=== PATIENT | female | born 1970 | race Hispanic/Latino ===

== ENCOUNTER 2018-09-07 08:13 | Outpatient (CLI) | payer OTHER ==
--- NOTE | 2018-09-07 10:10 | MRI ---
RIGHT KNEE MRI WITHOUT IV CONTRAST: Date: 09/07/18 HISTORY: 48-year-old female with history of strained right knee, right knee pain for several months. TECHNIQUE: Multiplanar, multisequence MRI examination of the knee is performed. FINDINGS: There is some fairly severe generalized tricompartment cartilage loss with some irregular full thickn ess components of both the medial and lateral compartments. There is an oblique full thickness fissur e with minimal delamination involving the central patellar facet, as well as irregular trochlear groo ve cartilage loss. Extensive complex tear of the lateral meniscus, including flap component, with ishaan e maceration. Very extensive complex macerated tear of the medial meniscus, including a flap component. Small amoun t of fluid in the suprapatellar recess. The cruciate ligaments and collateral ligament complexes and quadriceps and patellar tendons appear intact. 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 Very extensive complex flap tears with considerable maceration involving both the medial and lateral menisci. Some j oint fluid in the suprapatellar recess. POS: [facility]
== END 2018-09-07 08:14 | disposition home or self-care (01) ==
LOC: BICMRI 08:13
PROVIDERS: ATTEND Family Medicine
DX: S86.911D Strain of unspecified muscle(s) and tendon(s) at lower leg level, right leg, subsequent encounter (principal); M17.11 Unilateral primary osteoarthritis, right knee; M94.8X6 Other specified disorders of cartilage, lower leg